=== PATIENT | female | born 1950 | race Caucasian/White ===

== ENCOUNTER 2019-02-21 09:16 | Emergency (ER) | payer OTHER ==
[~2019-02-21] VITALS: Ht 160 cm; Wt 86.2 kg
[~2019-02-21 09:16] MED LIST: AFRIN SALINE NA30 ML NS; ASPIR-TRIN325 MG PO; CENTRUM SILVER1 EAC4 PO; CERTAGEN SOL1 BO1 NG; CO Q-10100 MG PO; COLACE100 MG PO; FISH OIL 1,001000 M2 PO; FLAX OIL1000 MG PO; IBUPROFEN200 M1 PO; NAPROSYN500 MG PO; NASACORT10.8 ML NS; PERCOCET PO; SENNA8.6 MG PO; VITAMIN D1000 UNI1 PO
[2019-02-21] MEDS ORDERED: CELEBREX 200 M200 M1 PO (09:22)
[2019-02-21 09:48] LABS: ABSOLUTE NEUTROPHILS 13.5 thou/uL (1.4-8.2); BASOPHILS 0.9 % (0.0-2.0); EOSINOPHILS 0.4 % (0.0-3.0); HEMATOCRIT 42.4 % (37.0-47.0); HEMOGLOBIN 14.1 gm/dL (12.0-15.0); LYMPHOCYTES 11.7 % (24.0-44.0); MCH 28.4 pg (26.0-34.0); MCHC 33.3 g/dL (28.0-37.0); MCV 85.2 fL (80.0-100.0); MONOCYTES 7.7 % (1.0-8.0); PLATELET COUNT 264 thou/uL (150-400); POLYS 79.3 % (36.0-66.0); RBC 4.97 mil/uL (4.20-5.00); RDW 14.5 % (10.5-14.5)
[2019-02-21 09:51] LABS: URINE BILIRUBIN NEGATIVE (Negative); URINE BLOOD NEGATIVE (Negative); URINE CLARITY CLEAR; URINE COLOR YELLOW; URINE GLUCOSE-RANDOM* NEGATIVE (Negative); URINE KETONES NEGATIVE (Negative); URINE LEUKOCYTES TRACE (Negative); URINE NITRITE NEGATIVE (Negative); URINE PROTEIN (DIPSTICK) NEGATIVE (Negative); URINE SPECIFIC GRAVITY 1.015 (1.005-1.035); URINE UROBILINOGEN 0.2 E.U./dl (0.2-1.0)
[2019-02-21 10:04] LABS: CALCIUM 9.8 mg/dL (8.5-10.1); CREATININE 0.8 mg/dL (0.6-1.0); POTASSIUM 4.1 mmol/L (3.5-5.1)
[2019-02-21 10:10] LABS: ALBUMIN 3.6 g/dL (3.4-5.0); TOTAL BILIRUBIN 0.5 mg/dL (<0.1-1.0); TOTAL PROTEIN 7.4 g/dL (6.4-8.2)
[2019-02-21] MEDS ORDERED: FLAGYL500 M1 PO (11:46)
[2019-02-21] MEDS ORDERED: CIPRO500 MG PO (11:46)
[2019-02-21 12:01] VITALS: BP 122/103
== END 2019-02-21 12:01 | disposition home or self-care (01) ==
LOC: ER 09:16
PROVIDERS: Emergency Medicine
DX: K57.32 Diverticulitis of large intestine without perforation or abscess without bleeding (principal); M19.90 Unspecified osteoarthritis, unspecified site; Z90.710 Acquired absence of both cervix and uterus; Z90.89 Acquired absence of other organs; Z96.643 Presence of artificial hip joint, bilateral